=== PATIENT | male | born 1950 | race Caucasian/White ===

== ENCOUNTER 2018-08-22 07:45 | Emergency (ER) | payer MEDICARE, MEDICAID ==
[~2018-08-22] VITALS: Ht 167.6 cm; Wt 63.6 kg
[2018-08-22 07:49] VITALS: BP 141/98
[2018-08-22] MEDS ORDERED: OXYC10 PO (07:55)
[2018-08-22] MEDS ORDERED: CLON1 PO (07:55)
== END 2018-08-22 08:40 | disposition left against medical advice (07) ==
LOC: EMS 07:47
DX: R41.82 Altered mental status, unspecified (principal); Z53.20 Procedure and treatment not carried out because of patient's decision for unspecified reasons; Z79.899 Other long term (current) drug therapy; Z85.118 Personal history of other malignant neoplasm of bronchus and lung; Z92.21 Personal history of antineoplastic chemotherapy